=== PATIENT | female | born 1985 | race Two or more races ===

== ENCOUNTER 2024-09-02 18:34 | Emergency (ER) | payer MEDICAID, SELFPAY ==
[2024-09-02 18:36] VITALS: BMI 22.4
[2024-09-02 18:49] VITALS: BP 113/71; PULSE 84; RESP 16; TEMP 37.1; O2SAT 98
--- NOTE | 2024-09-02 18:53 | XR_ITS ---
Examination: OB Transvaginal ultrasound of the pelvis, complete Technique: Transvaginal sonographic images pelvis performed using rajput scale imaging Exam date and time: September 02, 2024 2048 hrs. Indications: Vaginal bleeding today Findings: Uterus 9.4 x 5.7 x 7.8 cm pole 0.4 cm corresponds to 6 weeks 0 days gestational age No heart tones Right ovary 3.2 x 2.5 cm arterial flow Left ovary obscured by bowel gas Impression: Intrauterine gestation corresponding to 6 week 0 day gestational age However, no cardiac activity, recommend continued short-term follow-up transvaginal pelvic sonography to exclude embryonic demise.
--- NOTE | 2024-09-02 18:53 | PD.EDRME ---
Rapid Medical Screening Exam [facility] Arrival date/time: 09/02/24 18:34 39F at approximately 4-8 weeks and with no significant PMH presents to ED with 1 day of vaginal bleeding, but no pain. Chief Complaint: Vaginal Bleeding Vital signs: Vital Signs Temperature 98.7 F 09/02/24 18:49 Pulse Rate 84 09/02/24 18:49 Respiratory Rate 16 09/02/24 18:49 Blood Pressure 113/71 09/02/24 18:49 Pulse Oximetry (%) 98 09/02/24 18:49 Oxygen Delivery Method Room Air 09/02/24 18:49
[2024-09-02 19:11] LABS: Basophils # (Auto) 0.1 Thou/mm3 (0.0-0.2); Basophils % (Auto) 1 % (0-2.5); Eosinophils # (Auto) 0.1 Thou/mm3 (0.0-0.5); Eosinophils % (Auto) 1 % (0-10); Hematocrit 40.3 % (36.0-46.0); Hemoglobin 13.5 g/dL (12.0-16.0); Immature Granulocytes % (Auto) 0 % (0-0); Immature Granulocytes Auto 0.01 Thou/mm3 (0.00-0.00); Lymphocytes # (Auto) 2.3 Thou/mm3 (1.0-4.8); Lymphocytes % (Auto) 23 % (10-50); Mean Corpuscular HGB Conc 33.5 g/dl (31.0-37.0); Mean Corpuscular Hemoglobin 29.6 pg (25.0-35.0); Mean Corpuscular Volume 88 fL (80-100); Monocytes # (Auto) 0.6 Thou/mm3 (0.0-0.8); Monocytes % (Auto) 6 % (0-12); Neutrophils # (Auto) 6.8 Thou/mm3 (1.8-7.7); Neutrophils % (Auto) 70 % (37-80); Nucleated Red Blood Cell % 0 /100 WBC (0); Platelet Count 233 Thou/mm3 (140-440); RDW Standard Deviation 40.6 fL (36.4-46.3); Red Blood Count 4.56 Miln/mm3 (4.00-5.20); White Blood Count 9.8 Thou/mm3 (3.6-11.0)
[2024-09-02 19:33] LABS: Alanine Aminotransferase 11 U/L (10-49); Albumin, Serum 4.8 gm/dL (3.5-5.0); Albumin/Globulin Ratio 1.7 (1.2-2.2); Alkaline Phosphatase 52 U/L (46-116); Anion Gap 7 (7-16); Aspartate Amino Transferase 17 U/L (0-34); BUN/Creatinine Ratio 8 Ratio (12-20); Bilirubin,Total 0.3 mg/dL (0.3-1.2); Blood Urea Nitrogen 5 mg/dL (9-23); Calcium 9.8 mg/dL (8.3-10.6); Calcium (Corrected) 9.8 mg/dL (8.5-10.1); Chloride 107 mMol/L (98-107); Creatinine (Component) 0.6 mg/dL (0.6-1.3); Estimated Creatinine Clearance 91.3 mL/min (>60); Globulin 2.9 gm/dL (2.3-3.5); Glucose 124 mg/dL (74-106); Osmolality,Calculated 272 (275-295); Potassium 3.5 mMol/L (3.4-5.1); Sodium 137 mMol/L (136-145); Total Protein 7.7 gm/dL (5.7-8.2); eGFR > 60 See Note
[2024-09-02 19:35] LABS: Collection Type, Urine Clean Catch
[2024-09-02 19:44] LABS: Bilirubin,Urine Negative (Negative); Blood,Urine 1+ (Negative); Clarity,Urine Clear (Clear/Hazy); Color,Urine Lt-Yellow (Lt Yel-Yel); Glucose, Urine Negative (Negative); Ketones,Urine Negative (Negative); Leukocyte Esterase,Urine Negative (Negative); Nitrite,Urine Negative (Negative); Protein,Urine Negative (Neg - Trace); RBC,Urine 3 /hpf (0-3); Specific Gravity,Urine 1.014 (1.001-1.035); Squamous Epithelial Cell,Urine 1 /hpf (0-5); Urobilinogen,Urine Negative mg/dL (0.0-1.0); WBC,Urine 1 /hpf (0-5)
[2024-09-02 20:03] LABS: Beta HCG,Quantitative 4498 mIU/mL (<5.0)
--- NOTE | 2024-09-02 21:38 | PD.EDVAGBL ---
ED OB Contraction Preg RMI/HPI General Chief complaint: Vaginal Bleeding Stated complaint: VAG BLEED, + PREG TEST, KATIE 04/05/25 Time Seen by Provider: 09/02/24 21:33 Arrival date/time: 09/02/24 18:34 RME / HPI RME / HPI Narrative: 39F at approximately 4-8 weeks and with no significant PMH presents to ED with 1 day of vaginal bleeding, severity mild. Described as spotting only. Patient denies any pelvic pain. Denies any other complaints. Patient tested herself positive for at home. Related Data Allergies Allergy/AdvReac Type Severity Reaction Status Date / Time No Known Allergies Allergy Verified 09/02/24 18:38 Review of Systems Review of Systems Narrative Review of Systems: Review of system reviewed and within normal limits except mentioned in HPI ED Exam Narrative Physical exam: VITAL SIGNS: Reviewed. GENERAL APPEARANCE: Alert and interactive, follows commands, no acute distress, HEAD AND FACE: Non-traumatic. ENT: PERRL, pink conjunctivitis, eyelid no trauma, Mucous membrane moist. NECK: Supple, nontender, no nuchal rigidity. CHEST: No tenderness, no crepitus, no paradoxical movement, no retractions. LUNGS: Clear, well ventilated, symmetric, no rales, no wheezing, no ronchi, no stridor, good breath sounds bilaterally. HEART: Regular rate, regular rhythm, no murmur, no gallops. ABDOMEN: Soft, positive bowel sounds, nondistended, no guarding, nontender, no rebound, no masses, RECTAL: Deferred. GENITAL: Deferred. NEUROLOGICAL: Gross motor function intact sensory function intact, Appropriate for age. MUSCULOSKELETAL: low back nontender, full range of motion. EXTREMITIES: Nontender, full range of motion. SKIN: Color pink, dry, no rash, no lacerations, no abrasions, no contusions. LYMPHATICS: Deferred. Course Quality Measures none Orders Category Date Time Status US OB transvaginal Stat Exams 09/02/24 18:53 Completed ABO/RH Type Stat Lab 09/02/24 19:00 Completed Beta HCG,Quantitative Stat Lab 09/02/24 19:00 Completed CBC Stat Lab 09/02/24 19:00 Completed CMP [Comprehensive Metabolic Panel] Stat Lab 09/02/24 19:00 Completed UA [Urinalysis] Stat Lab 09/02/24 19:28 Completed Urine Culture Stat Lab 09/02/24 19:28 Received Vital Signs Vital signs: Vital Signs Temperature 98.7 F 09/02/24 18:49 Pulse Rate 84 09/02/24 18:49 Respiratory Rate 16 09/02/24 18:49 Blood Pressure 113/71 09/02/24 18:49 Pulse Oximetry (%) 98 09/02/24 18:49 Oxygen Delivery Method Room Air 09/02/24 18:49 Vaginal Bleeding MDM Narrative MDM Narrative: 39F at approximately 4-8 weeks and with no significant PMH presents to ED with 1 day of vaginal bleeding, severity mild. Described as spotting only. Patient denies any pelvic pain. Denies any other complaints. Patient tested herself positive for at home. Patient's workup today all came back unremarkable however patient's hCG was only 4498. The rest of the labs unremarkable. No UTI. ABO type VIII plus. Transfer via ultrasound showed intrauterine gestation about 6 weeks, with no cardiac activity. Patient was advised to return to emergency room in 2 to 3 days for repeat hCG and repeat ultrasound. To rule out demise. Results discussed with the patient. Patient data External records reviewed:: None Clinical information provided by:: patient Social determinants that could affect healthcare access:: none Patient has the following chronic illnesses:: None How is presenting disease/condition affected by chronic disease/condition?: no chronic disease Evaluation data The following diagnostics were reviewed and interpreted by me:: lab results and radiology exam(s) Lab and/or radiology exams considered but not ordered:: None Interpretation Summary: Laboratory workup all came back unremarkable hCG was noted to be 4498 ultrasound of showed Intrauterine gestation corresponding to 6 week 0 day gestational age However, no cardiac activity, recommend continued short-term follow-up transvaginal pelvic sonography to exclude embryonic demise. Medications / Prescriptions Medications or Prescriptions considered but not ordered:: None Medication administrations:: None Consultations Consultation(s) initiated? (list below): No Diagnosis Vaginal Bleeding Differential Diagnosis: missed , threatened and vaginal bleeding Most likely diagnosis given after review of the tests above:: Threatened Admission Indicated Admission indicated?: not indicated Admission Request Was there a request for admission?: No Disposition Plan Disposition Plan: Discharge Discharge Attestation Discharge Attestation: The patient was given an opportunity to ask questions and understood the discharge instructions. Discharge instructions specifically effects, indications for sooner follow up or return to the emergency department, and the expected course of current diagnosis. Patient condition: Stable Discharge Plan Plan Patient Disposition: HOME (Self Care) Disposition Comment: stable Prescriptions/Referrals Referrals: No Primary/Family,Physician [Primary Care Provider] - In 1 week Problem List Clinical Impression: Vaginal bleeding, Currently Patient/Caregiver Discharge Instructions Discharge Activity: activity as tolerated Education Materials: First Trimester Additional Instructions: Thank you for the opportunity for serving you today. You are stable for discharged . You are advised to: Follow-up with your PCP in 1 to 2 days Return to ED for worsening of symptoms Increase oral fluids Pelvic rest, no sex for 1 week or until cleared by RN INFUSION, return to emergency room in 3 days for repeat hCG Print Language: Norwegian Stand Alone Forms: Neena Award Info., Patient Portal Info Letter PA/DELIVERY HELPER Supervising Physician LUCIA/TIM Supervising Physician: MD Vidal
[2024-09-02 21:45] VITALS: BP 116/72; PULSE 76; RESP 18; TEMP 36.8; O2SAT 99
== END 2024-09-02 21:46 | disposition home or self-care (01) ==
PROVIDERS: Physician Assistant; Emergency Provider Emergency Medicine
DX: O20.9 Hemorrhage in early pregnancy, unspecified (principal); Z3A.01 Less than 8 weeks gestation of pregnancy
CPT/HCPCS: 36415; 76817; 80053; 81001; 84702; 85025; 86900; 86901; 87086; 99284

== ENCOUNTER 2024-09-04 02:39 | Emergency (ER) | payer MEDICAID, SELFPAY ==
[2024-09-04 03:01] VITALS: BP 117/76; PULSE 105; RESP 16; TEMP 36.7; O2SAT 98
--- NOTE | 2024-09-04 03:02 | PD.EDRME ---
Rapid Medical Screening Exam [facility] Arrival date/time: 09/04/24 02:39 39 year old female present to ED for c/o of vaginal bleeding, currently 6 week I have greeted and performed a focused initial assessment of this patient. A comprehensive ED assessment and evaluation of the patient, analysis of all test results, and completion of the medical decision making process will be conducted by additional ED providers. Chief Complaint: Vaginal Bleeding Time Seen by Provider: 09/04/24 02:41
[2024-09-04 03:03] VITALS: BMI 20.8
--- NOTE | 2024-09-04 03:04 | XR_ITS ---
Examination: Complete OB ultrasound, less than 14 weeks, transabdominal Date and time of exam: September 04, 2024 0326 hrs. Indications: Heavy vaginal bleeding today, transvaginal ultrasound September 02, 2024 intrauterine gestation but no cardiac activity Technique: Obstetrical ultrasound images less than 14 weeks performed via transabdominal imaging Findings: Uterus 9.9 x 5.3 x 6.0 cm Intrauterine gestation, 1.6 cm gestational sac corresponding to 6 weeks 3 days gestational age No recognizable pole, no cardiac activity Masslike area in the cervix vaginal region 5.4 x 3.0 x 5.6 Is retained products Ovaries obscured by bowel gas Impression: Embryonic demise Recommend continued follow-up transvaginal pelvic sonography to differentiate retained products of conception from mass in the cervical region 5.4 x 3.0 x 5.6 cm
--- NOTE | 2024-09-04 03:04 | XR_ITS ---
Examination: Retroperitoneal ultrasound, complete Technique: Multiple high resolution grayscale images of the retroperitoneum obtained, including kidneys and bladder. Exam date and time:August 08, 2024 0337 hrs. Indications: Onset bilateral flank pain today Findings: Right kidney 9.8 x 4.9 x 6.2 cm cortex 1.9 cm Left kidney 10.4 x 4.4 x 4.8 cm cortex 2.2 cm No hydronephrosis or renal calculi Contracted urinary bladder 8.7 cc Impression: No hydronephrosis or renal calculi
[2024-09-04 03:42] LABS: Basophils # (Auto) 0.1 Thou/mm3 (0.0-0.2); Basophils % (Auto) 1 % (0-2.5); Eosinophils # (Auto) 0.2 Thou/mm3 (0.0-0.5); Eosinophils % (Auto) 2 % (0-10); Hematocrit 41.5 % (36.0-46.0); Hemoglobin 14.1 g/dL (12.0-16.0); Immature Granulocytes % (Auto) 0 % (0-0); Immature Granulocytes Auto 0.02 Thou/mm3 (0.00-0.00); Lymphocytes # (Auto) 2.7 Thou/mm3 (1.0-4.8); Lymphocytes % (Auto) 26 % (10-50); Mean Corpuscular Hemoglobin 30.1 pg (25.0-35.0); Mean Corpuscular Volume 89 fL (80-100); Monocytes # (Auto) 0.6 Thou/mm3 (0.0-0.8); Monocytes % (Auto) 5 % (0-12); Neutrophils # (Auto) 6.9 Thou/mm3 (1.8-7.7); Neutrophils % (Auto) 66 % (37-80); Nucleated Red Blood Cell % 0 /100 WBC (0); Platelet Count 243 Thou/mm3 (140-440); RDW Standard Deviation 40.4 fL (36.4-46.3); Red Blood Count 4.69 Miln/mm3 (4.00-5.20); White Blood Count 10.5 Thou/mm3 (3.6-11.0)
[2024-09-04 03:49] LABS: INR 1.1 (0.9-1.3); Prothrombin Time 11.9 Seconds (9.0-12.2)
[2024-09-04 03:58] LABS: Alanine Aminotransferase 11 U/L (10-49); Albumin, Serum 4.9 gm/dL (3.5-5.0); Albumin/Globulin Ratio 1.6 (1.2-2.2); Alkaline Phosphatase 56 U/L (46-116); Anion Gap 8 (7-16); Aspartate Amino Transferase 17 U/L (0-34); BUN/Creatinine Ratio 12 Ratio (12-20); Bilirubin,Total 0.6 mg/dL (0.3-1.2); Blood Urea Nitrogen 7 mg/dL (9-23); Calcium 9.9 mg/dL (8.3-10.6); Calcium (Corrected) 9.9 mg/dL (8.5-10.1); Carbon Dioxide 24.5 mMol/L (20.0-31.0); Chloride 104 mMol/L (98-107); Creatinine (Component) 0.6 mg/dL (0.6-1.3); Estimated Creatinine Clearance 95.9 mL/min (>60); Glucose 120 mg/dL (74-106); Lipase 43 U/L (12-53); Osmolality,Calculated 270 (275-295); Potassium 3.4 mMol/L (3.4-5.1); Sodium 136 mMol/L (136-145); Total Protein 7.9 gm/dL (5.7-8.2); eGFR > 60 See Note
[2024-09-04 04:23] LABS: Beta HCG,Quantitative 2717 mIU/mL (<5.0)
--- NOTE | 2024-09-04 04:37 | PRELIM_ITS ---
Renal/Retroperitoneal ultrasound. September 04, 2024 at 0337 hours Clinical history: Flank pain, rule out stones. The patient is . Technique: Duplex scan of the bilateral renal arterial and venou s tree was performed utilizing 2D grayscale imaging, Doppler spectral analysis and color flow. Findin gs:Right: The right kidney measures 9.8 x 4.9 x 6.2 cm with cortical thickness of 1.9 cm and is unrem arkable. There is no hydronephrosis or renal calculus. The corticomedullary differentiation is mainta ined.Left: The left kidney measures 10.2 x 4.4 x 4.8 cm with cortical thickness of 2.2 cm and is unre markable. There is no hydronephrosis or renal calculus. The corticomedullary differentiation is maint ained.The prevoid volume is 8.7 mL. The patient unable to void further. The ureteric jets are not vis ualized (after 1 minute). Impression:No renal calculus or hydronephrosis. Report Electronically Sign ed By: Debra Andrade 09/04/2024 4:36:36 AM [EST]
[2024-09-04 05:20] LABS: Collection Type, Urine Voided; WBC,Urine 0 /hpf (0-5)
[2024-09-04 05:21] VITALS: BP 113/70; PULSE 86; RESP 16; TEMP 36.8; O2SAT 98
--- NOTE | 2024-09-04 05:21 | PRELIM_ITS ---
Obstetric ultrasound (transabdominal). September 04, 2024 at 0326 hours Clinical history: Pelvic pain with vaginal bleeding.LMP 07/03/2024. HCG pending today, 4498 on 09/02/2024. Technique: Real-time obs tetric ultrasound was performed.Findings:There is an intrauterine gestational sac with a yolk sac. Th e mean sac diameter is 1.6 cm, corresponding to 6 weeks and 3 days. pole is not seen at this ti me.There is a 5.4 x 3 x 5.2 cm complex mass in the cervical/vaginal region (images 55-56/61).The uter us measures 9.9 x 5.3 x 6 cm. The ovaries are obscured by bowel gas. No evidence of adnexal mass.Ther e is no free fluid. Impression:Early intrauterine gestation with a visible yolk sac. pole and f etal cardiac activity are not seen at this time, which may be related to the early stage of gestation . Recommend follow up for viability.A 5.4 x 3 x 5.2 cm complex mass in the cervical/vaginal region. R eport Electronically Signed By: Debra Andrade 09/04/2024 5:20:45 AM [EST]
[2024-09-04 05:23] LABS: Bilirubin,Urine Negative (Negative); Blood,Urine 3+ (Negative); Clarity,Urine Turbid (Clear/Hazy); Glucose, Urine Negative (Negative); Ketones,Urine 4+ (Negative); Leukocyte Esterase,Urine Positive (Negative); Nitrite,Urine Negative (Negative); Protein,Urine 1+ (Neg - Trace); RBC,Urine 3281 /hpf (0-3); Squamous Epithelial Cell,Urine 1 /hpf (0-5); Urobilinogen,Urine Negative mg/dL (0.0-1.0)
[2024-09-04 05:24] LABS: Color,Urine Lt Orange (Lt Yel-Yel)
[2024-09-04 06:14] VITALS: O2SAT 99
[2024-09-04 06:15] VITALS: BP 101/60; PULSE 84; RESP 17; O2SAT 99
--- NOTE | 2024-09-04 06:20 | PD.EDVAGBL ---
ED OB Contraction Preg RMI/HPI General Chief complaint: Vaginal Bleeding Stated complaint: VAGINAL BLEEDING Time Seen by Provider: 09/04/24 02:41 Arrival date/time: 09/04/24 02:39 RME / HPI RME / HPI Narrative: 09/04/24 02:39 HPI Patient: 39-year-old female, 6 weeks 2. Chief Complaint: Recheck for vaginal bleeding. History: Reports no pain, fevers, chills, nausea, vomiting, diarrhea, or constipation. Denies further medical history1. Patient was here 2 days ago with a dropping hCG level. Minimal pain and bleeding, no passing of tissues1. Blood type: Positive. Ultrasound shows at the cervical os1. DDX Incomplete spontaneous : Given the dropping hCG levels, minimal pain, and bleeding, with ultrasound findings2. Threatened : Bleeding in early without passage of tissue2. Not Ectopic : Although less likely given the ultrasound findings, it should be ruled out due to the risk of rupture2. Not Cervical polyp or ectropion: These can cause bleeding, especially after a vaginal exam. MDM Confirm diagnosis: Repeat ultrasound to assess for retained products of conception. Management options: Expectant management: Allow for natural passage of tissue, with close follow-up. Medical management: Use of misoprostol to induce contractions and expel tissue. Surgical management: Dilation and curettage (D&C) if bleeding is heavy or patient prefers quicker resolution. Rh immunoglobulin: Administer Rhogam if the patient is Rh-negative to prevent isoimmunization. Supportive care: Provide emotional support and counseling, as patients may experience significant psychological impact. Related Data Allergies Allergy/AdvReac Type Severity Reaction Status Date / Time No Known Allergies Allergy Verified 09/02/24 18:38 Review of Systems Review of Systems Narrative Review of Systems: Gen: No fever, no chills, no weight loss EYES: No discharge, no visual changes, no pain HEENT: No ear pain, no congestion, no sore throat PULM: No shortness of breath, no cough, no congestion CV: No chest pain, no dyspnea on exertion, no palpitations GI: No nausea, no vomiting, no diarrhea, no pain, no constipation : +vaginal bleeding. No frequency, no urgency, no dysuria Musc/skel: No joint pain, no back pain Skin: No rash Psyc: No hallucinations, no depression Heme/Lymph: No easy bleeding or bruising tendencies Neuro: No weakness, no headache Past Medical History Past Medical History CARDIAC: Negative Congestive Heart Failure RESPIRATORY: Negative Chronic Obstructive Pulmonary Disease (COPD) GENITOURINARY: Negative Renal Disease ENDOCRINE: Negative Diabetes Mellitus Type 1 or Diabetes Mellitus Type 2 Social History SMOKING STATUS: Never smoker ED Exam Narrative Physical exam: GEN. APPEARANCE: The patient is alert awake oriented X-3 in minimal distress, lying down comfortably, does not look ill/toxic. Patient has good eye contact. Patient is cooperative. VITALS: All vitals were reviewed and the pulse ox is 99% on room air which is normal according to my interpretation. HEENT: Normocephalic, atraumatic. Pupils are equal and reactive. Oral mucosa is moist. Patent Nares NECK: Supple, nontender, no thyromegaly, no meningismus, no JVD, no step offs CHEST: Symmetrical, atraumatic, and with equal expansion , Nontender on palpation no deformity and no crepitus. CARDIOVASCULAR: Heart regular rhythm no murmur or gallop rub or extra beats. LUNGS: Clear to auscultation bilaterally with symmetrical chest rise. No laboring tachypnea or wheezing. No intercostal subcostal retraction. No rales and no rhonchi. ABDOMEN: Soft, flat, nontender to palpation, no guarding or rebound tenderness. There are no abnormal masses palpated. Active and normal bowel sounds. EXTREMITIES: Nontender. No edema. No cyanosis. Patient is able to move all 4 extremities well, with full ROM and good CSM. SKIN: Warm and dry, no jaundice or rashes noted. MUSCULOSKELETAL: No lubar or midline bony tenderness. There is no CVA tenderness. No paraspinal muscle spasm or tenderness. NEURO: Patient is BENÍTEZ x 4, Cranial nerves II through XII grossly intact. There is no focal neurologic deficits noted. GCS is 15, PNS and [employer] appear grossly intact. PSYCHIATRIC: Patient is in normal mood and affect, cooperative, no SI or HI or hallucinations. Pelvis exam differed at this time. Course Quality Measures none Orders Category Date Time Status US OB <= 14 weeks fetus Stat Exams 09/04/24 03:04 Completed US renal BI Stat Exams 09/04/24 03:04 Completed ABO/RH Type Stat Lab 09/04/24 07:30 Completed Beta HCG,Quantitative Stat Lab 09/04/24 03:20 Completed CBC Stat Lab 09/04/24 03:20 Completed CMP [Comprehensive Metabolic Panel] Stat Lab 09/04/24 03:20 Completed INR [Prothrombin Time with INR] Stat Lab 09/04/24 03:20 Completed Lipase Stat Lab 09/04/24 03:20 Completed UA [Urinalysis] Stat Lab 09/04/24 05:06 Completed Urine Culture Stat Lab 09/04/24 05:06 Received Vital Signs Vital signs: Vital Signs Temperature 98.1 F 09/04/24 03:01 Pulse Rate 105 H 09/04/24 03:01 Respiratory Rate 16 09/04/24 03:01 Blood Pressure 117/76 09/04/24 03:01 Pulse Oximetry (%) 98 09/04/24 03:01 Oxygen Delivery Method Room Air 09/04/24 03:01 Vaginal Bleeding Patient data External records reviewed:: [facility] previous records Clinical information provided by:: patient Social determinants that could affect healthcare access:: none Patient has the following chronic illnesses:: none How is presenting disease/condition affected by chronic disease/condition?: no chronic disease Evaluation data The following diagnostics were reviewed and interpreted by me:: lab results and radiology exam(s) Lab and/or radiology exams considered but not ordered:: none Interpretation Summary: Ordering Physician: Date of Service: Procedure(s): Accession Number(s): cc: ~ Obstetric ultrasound (transabdominal). September 04, 2024 at 0326 hours Clinical history: Pelvic pain with vaginal bleeding.LMP 07/03/2024. HCG pending today, 4498 on 09/02/2024. Technique: Real-time obstetric ultrasound was performed. Findings: There is an intrauterine gestational sac with a yolk sac. The mean sac diameter is 1.6 cm, corresponding to 6 weeks and 3 days. pole is not seen at this time. There is a 5.4 x 3 x 5.2 cm complex mass in the cervical/vaginal region (images 55-56/61). The uterus measures 9.9 x 5.3 x 6 cm. The ovaries are obscured by bowel gas. No evidence of adnexal mass. There is no free fluid. Impression: Early intrauterine gestation with a visible yolk sac. pole and cardiac activity are not seen at this time, which may be related to the early stage of gestation. Recommend follow up for viability. A 5.4 x 3 x 5.2 cm complex mass in the cervical/vaginal region. Report Electronically Signed By: Debra Andrade 09/04/2024 5:20:45 AM [EST] Ordering Physician: Date of Service: Procedure(s): Accession Number(s): cc: ~ Renal/Retroperitoneal ultrasound. September 04, 2024 at 0337 hours Clinical history: Flank pain, rule out stones. The patient is . Technique: Duplex scan of the bilateral renal arterial and venous tree was performed utilizing 2D grayscale imaging, Doppler spectral analysis and color flow. Findings: Right: The right kidney measures 9.8 x 4.9 x 6.2 cm with cortical thickness of 1.9 cm and is unremarkable. There is no hydronephrosis or renal calculus. The corticomedullary differentiation is maintained. Left: The left kidney measures 10.2 x 4.4 x 4.8 cm with cortical thickness of 2.2 cm and is unremarkable. There is no hydronephrosis or renal calculus. The corticomedullary differentiation is maintained. The prevoid volume is 8.7 mL. The patient unable to void further. The ureteric jets are not visualized (after 1 minute). Impression: No renal calculus or hydronephrosis. Report Electronically Signed By: Debra Andrade 09/04/2024 4:36:36 AM [EST] Dictated By: Signed By: Medications / Prescriptions Medications or Prescriptions considered but not ordered:: none Medication administrations:: none Consultations Consultation(s) initiated? (list below): No Diagnosis Vaginal Bleeding Differential Diagnosis: other (spontaneous , incomplete . medical screening) Most likely diagnosis given after review of the tests above:: spontaneous Admission Indicated Admission indicated?: not indicated Admission Request Was there a request for admission?: No Disposition Plan Disposition Plan: Discharge Discharge Attestation Discharge Attestation: The patient and all family members were given an opportunity to ask questions and understood the discharge instructions. Discharge instructions specifically effects, indications for sooner follow up or return to the emergency department, and the expected course of current diagnosis. Patient condition: Stable Discharge Plan Plan Patient Disposition: HOME (Self Care) Patient condition on transfer: Stable Prescriptions/Referrals Referrals: No Primary/Family,Physician [Primary Care Provider] - In 1 week Problem List Clinical Impression: Spontaneous Patient/Caregiver Discharge Instructions Education Materials: ED MISCARRIAGE Completed Print Language: Estonian Stand Alone Forms: Neena Award Info., Patient Portal Info Letter
--- NOTE | 2024-09-04 08:13 | PC.NURSE ---
pt ambulated to restroom independently with steady gait
[2024-09-04 08:16] VITALS: BP 92/70; PULSE 85; RESP 14; TEMP 36.8; O2SAT 98
[2024-09-04 10:00] VITALS: BP 103/58; PULSE 85; RESP 15; TEMP 36.6; O2SAT 97
== END 2024-09-04 10:53 | disposition home or self-care (01) ==
PROVIDERS: Physician Assistant; Emergency Provider Emergency Medicine
DX: O03.9 Complete or unspecified spontaneous abortion without complication (principal)
CPT/HCPCS: 36415; 76770; 76801; 80053; 81001; 83690; 84702; 85025; 85610; 86900; 86901; 87086; 99284

== ENCOUNTER 2025-06-13 11:33 | Outpatient (AMB) | payer MEDICAID, SELFPAY ==
--- NOTE | 2025-06-13 11:44 | AMB.OBINITIA ---
Vital Signs 06/13/25 11:58 Height 1.52 m Height Method Stated Weight 54.941 kg Weight Measurement Method Standing Scale BMI 23.8 BP 113/64 Blood Pressure Source Automatic Cuff Blood Pressure Location Left Upper Arm Position Sitting Respiration 16 Pulse 76 Pulse Source Monitor Temp 97.8 F Temp Source Oral Pulse Oximetry (%) 98 Oxygen Delivery Method Room Air Allergies/Home Meds Allergies & Medications Allergies No Known Allergies Allergy (Verified 06/13/25 11:59) Medication Reconciliation No Known Home Medications 06/13/25 [History Confirmed 06/13/25] Intake Visit Data Collection New Patient or Established: Established Patient (seen at [facility] within 3 years) Reason for Visit:: INITIAL CARE Seen by Clinical Staff ONLY (RN/MA): No Inventory Control Planner Required: Yes Inventory Control Planner's name/title: CHRISTINA CUNNINGHAM Do You Feel Safe at Home: Yes Authorities Contacted: N/A PCP or OBGYN visit in last 3 months: Yes Hx Now: Yes Are you currently on any form of Control: No Last menstrual period: 01/08/25 Pain Present Currently: No Pain Scale Used: Adrian-Douglas/Numerical Pain scale:: 0 Smoking Status Smoking Status: Never smoker Questionnaires Covid-19 Vaccine Questionnaire Has patient been vacinated for Covid-19 Have you been vacinated for Covid-19: Yes PHQ-9 PHQ-2 Over the last 2 weeks, how often have you been bothered by any of the following problems? 1. Little interest or pleasure in doing things: not at all 2. Feeling down, depressed, or hopeless: not at all Total score: 0 PHQ-9 3. Trouble falling or staying asleep, or sleeping too much: Not at all 4. Feeling tired or having little energy: Not at all 5. Poor appetite or overeating: Not at all 6. Feeling bad about yourself - or that you are a failure or have let yourself or your family down: Not at all 7. Trouble concentrating on things, such as reading the newspaper or watching television: Not at all 8. Moving or speaking so slowly that other people could have noticed? - Or the opposite - being so fidgety or restless that you have been moving around a lot more than usual: not at all 9. Thoughts that you would be better off or of hurting yourself in some way: Not at all Total score: 0 Source: Developed by Drs. Rubén Donohue, Reina Russo, Edson Bridges and colleagues, with an educational jareth from [employer]. Depression screen completed yes Social History Living Situation History Marital Status: Lives With: Family Housing: House Housing Other:: Has 4 children at home aged 23-11. Stays at home Tobacco History Smoking Status: Never smoker Second Hand Smoke Exposure: No Alcohol History Alcohol Intake: Former Alcohol Intake Frequency: holidays/special occasions only Domestic Abuse History Do You Feel Safe at Home: Yes History of Present Illness HPI Narrative The patient is a very sweet pleasant 40-year-old -0-1-4 exclusively Nigerien-speaking female who presents with her for an OB visit. She states she thought she was in menopause . She had a miscarriage in September 2024 and had some spotting in January. She has not had a period since. Her abdomen started growing and she took a test. The patient is actually feeling movement today. An ultrasound reveals approximately 23-1/2 weeks size fetus with cardiac activity. OB Ultrasound Indication Indication: Size and dates OB Ultrasound Ultrasound technique: transabdominal Gestational sac assessment: Presence, location, size, shape: Femur length 23-3/7 weeks BPD 23-5/7 weeks cardiac activity noted at 145 bpm EDC 10/05/2025. 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 No D&C History of vaginal delivery x 4 Other Relevant History: Patient denies chronic medical problems including asthma diabetes or hypertension. The patient denies any surgeries. OB Initial Visit Menstrual History Menstrual reliability: unknown Flow: normal Menstrual regularity: regular Monthly: Yes Age at menarche: 14 On control pills at conception: No Menstrual history comments: Patient thinks her last period was January 08, 2025 but she is unsure Associated symptoms (LMP): Reports fatigue and breast tenderness OB History : 6 Para: 4 Hx Total # of Abortions (Spontaneous & Elective): 1 # of Living Children: 4 Delivery History 1st : Child's name: SONAM date: 06/24/03 sex: male Gestational age at delivery (weeks): 41 Delivery type: vaginal Delivery complications: NONE History of depression before or after : No 2nd : Child's name: ELMA date: 02/03/05 sex: male Gestational age at delivery (weeks): 40 Delivery type: vaginal Delivery complications: NONE History of depression before or after : No 3rd : Child's name: OPHELIA date: 04/30/03 sex: male Gestational age at delivery (weeks): 39 Delivery type: vaginal Delivery complications: NONE History of depression before or after : No 4th : Child's name: MIRTA date: 08/07/14 sex: female Gestational age at delivery (weeks): 39 Delivery type: vaginal Delivery complications: NONE History of depression before or after : No Infection History & Risk Evaluation History of STDs: none Genetic Screening & History Genetic Screening/Teratology Counseling - Includes patient, baby's father, or anyone in either family with: 1. Patient's age 35 years or older as of estimated date of delivery: Yes 2. Thalassemia (Romanian, Palestinian, Mediterranean, or Background); MCV less than 80: No 3. Neural Tube Defect (Meningomyelocele, Spina Bifida, or Anencephaly): No 4. Congenital Heart Defect: No 5. Down Syndrome: No 6. Matthias-Sachs (Ashkenazi Alevism, Cajun, [place] Citizen [place]): No 7. Waylon Disease (Ashkenazi Alevism): No 8. Familial Dysautonomia (Ashkenazi Alevism): No 9. Sickle Cell Disease or Trait (): No 10. Hemophilia or other blood disorders: No 11. Muscular Dystrophy: No 12. Cystic Fibrosis: No 13. Carlyn's Chorea: No 14. Mental Retardation/Autism: No 15. Other inherited genetic or chromosomal disorder: No 16. Maternal Metabolic Disorder (EG,TYPE 1 Diabetes, PKU): No 17. Patient or baby's father had a child with defects not listed above: No 18. Recurrent loss or a stillbirth: No 19. Medications (including supplements, vitamins, herbs or otc drugs)/illicit/recreational drugs/alcohol since last menstrual period: No 20. Any other: No Infection History 1. Live with someone with TB or exposed to TB: No 2. Rash or viral illness since last menstrual period: No 3. Hepatitis B,C: No Other (see comments) Source: [employer] Review of Systems Constitutional Constitutional: Reports fatigue Endocrine Endocrine: Reports fatigue Exam Narrative Physical exam: Fundus 24 weeks General Limitations: no limitations and language barrier (Nigerien-speaking only) General Appearance: alert, in no apparent distress, comfortable, cooperative and healthy appearing Chest Chest inspection: Present normal inspection and symmetric chest wall rise Resp Respiratory exam: Present normal lung sounds bilaterally Card Cardiovascular exam: Present regular rate, normal rhythm and normal heart sounds Abdominal Abdominal exam: Present soft and normal bowel sounds Extremities Extremities exam: Present normal inspection and full ROM Psych Psychiatric exam: Present normal affect and normal mood Skin Skin exam: Present warm, dry, intact and normal color Office Procedures OB Clinic LOC & Office Proc's Nursing/Assessment Patient Status: Established Patient OB Clinic Nursing Assessment: Medication Reconciliation, Update PMH in EMR and Vital Signs OB Clinic Coordination of Care: AMA, Complex Care and Chronic Disease 1-5, Consent,records obtained, informed consent, Education Simp Pt/Fam, 1 Ins Authorization, Lab and Imaging orders, Results/Orders obtained and Staff clarify orders Special Needs: Heart tones Established Patient Charge Established Patient Point Assignment: 170 Established Patient Point Charge: EP Level 5 (160-above) Assessment & Plan Diagnosis / Problem List (1) Currently : Status: Inactive Qualifiers: Weeks of gestation: 23 weeks Qualified Code(s): Z3A.23 - 23 weeks gestation of Plan: Ordered all labs, official ultrasound and NIPT Okay with finding out gender. Today in ultrasound it appears a girl. Patient has 3 boys and a girl at home. The youngest is a girl and she is 11 years old (2) AMA (advanced maternal age) multigravida 35+: Status: Acute Qualifiers: Trimester: second trimester Qualified Code(s): O09.522 - Supervision of elderly multigravida, second trimester Plan: Ordered NIPT.
[2025-06-13 11:58] VITALS: BP 113/64; PULSE 76; RESP 16; TEMP 36.6; O2SAT 98; BMI 23.8
== END 2025-06-13 12:11 | disposition home or self-care (01) ==
LOC: HODSOBC 11:33
PROVIDERS: PCP Obstetrics & Gynecology; Referring Provider Obstetrics & Gynecology; Supervising Provider Obstetrics & Gynecology; Visit Provider Obstetrics & Gynecology
DX: O09.522 Supervision of elderly multigravida, second trimester (principal); O09.291 Supervision of pregnancy with other poor reproductive or obstetric history, first trimester; Z3A.23 23 weeks gestation of pregnancy
CPT/HCPCS: 99215; G0463

== ENCOUNTER 2025-06-29 10:38 | Outpatient (AMB) | payer MEDICAID, SELFPAY ==
[2025-06-29 10:56] VITALS: BP 105/64; PULSE 80; RESP 16; TEMP 36.6; O2SAT 99; BMI 23.8
--- NOTE | 2025-06-29 10:56 | OBCLNT_ITS ---
Vital Signs 06/29/25 10:56 Height 1.52 m Height Method Stated Weight 55.055 kg Weight Measurement Method Standing Scale BMI 23.8 BP 105/64 Blood Pressure Source Automatic Cuff Blood Pressure Location Left Upper Arm Position Sitting Respiration 16 Pulse 80 Pulse Source Monitor Temp 97.8 F Temp Source Oral Pulse Oximetry (%) 99 Oxygen Delivery Method Room Air Allergies/Home Meds Allergies & Medications Allergies No Known Allergies Allergy (Verified 06/29/25 10:57) Medication Reconciliation No Known Home Medications 06/13/25 [History Confirmed 06/29/25] Intake Visit Data Collection New Patient or Established: Established Patient (seen at [facility] within 3 years) Reason for Visit:: CARE Seen by Clinical Staff ONLY (RN/MA): No Adobe Developer Required: No Do You Feel Safe at Home: Yes Authorities Contacted: N/A PCP or OBGYN visit in last 3 months: Yes Hx Now: Yes Are you currently on any form of Control: No Pain Present Currently: No Pain Scale Used: Adrian-Douglas/Numerical Pain scale:: 0 Smoking Status Smoking Status: Never smoker Questionnaires Covid-19 Vaccine Questionnaire Has patient been vacinated for Covid-19 Have you been vacinated for Covid-19: Yes PHQ-9 PHQ-2 Over the last 2 weeks, how often have you been bothered by any of the following problems? 1. Little interest or pleasure in doing things: not at all 2. Feeling down, depressed, or hopeless: not at all Total score: 0 PHQ-9 3. Trouble falling or staying asleep, or sleeping too much: Not at all 4. Feeling tired or having little energy: Not at all 5. Poor appetite or overeating: Not at all 6. Feeling bad about yourself - or that you are a failure or have let yourself or your family down: Not at all 7. Trouble concentrating on things, such as reading the newspaper or watching television: Not at all 8. Moving or speaking so slowly that other people could have noticed? - Or the opposite - being so fidgety or restless that you have been moving around a lot more than usual: not at all 9. Thoughts that you would be better off or of hurting yourself in some way: Not at all Total score: 0 Source: Developed by Drs. Rubén Donohue, Reina Russo, Edson Bridges and colleagues, with an educational jareth from [employer]. Depression screen completed yes Social History Living Situation History Lives With: Family Housing: House Housing Other:: Has 4 children at home aged 23-11. 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 First visit at about 23 weeks. Has 3 boys at home and this 1 is a girl. Reviewed labs and ultrasound. Good movem ent no contractions no vaginal bleeding KATIE Calculator 2 Estimated Delivery Date Method Current WG Current Estimate 10/05/25 Ultrasound #1 26w 0d Other Estimates 10/15/25 LMP (Uncertain) 24w 4d Expected Delivery Route/Plan -0-1-4 history of vaginal delivery x 4 Kyrgyz-speaking only Specific Issue/Plans A positive/antibody negative/rubella immune/RPR nonreactive/hepatitis B surface antigen negative/HIV negative/hepatitis C negative/hemoglobin 12.2/hematocrit 37.9/hemoglobin A1c 4.7 NIPT 46XX/GC chlamydia negative urine culture negative/ 1 hour glucose normal at 135. Notes Visit Date: 06/29/25 Last Updated by: Heather Gill (OB Clinic)MD Has structural survey coming up. Normal NIPT. Office Procedures OBC Clinic LOC & Office Proc's Nursing/Assessment Patient Status: Established Patient OB Clinic Nursing Assessment: Medication Reconciliation, Update PMH in EMR and Vital Signs OB Clinic Coordination of Care: AMA, Complex Care and Chronic Disease 1-5, Consent,records obtained, informed consent, Education Simp Pt/Fam, 1 Ins Authorization, Lab and Imaging orders, Results/Orders obtained and Staff clarify orders Special Needs: Heart tones Established Patient Charge Established Patient Point Assignment: 170 Established Patient Point Charge: EP Level 5 (160-above) Assessment & Plan Diagnosis / Problem List (1) : Status: Acute Qualifiers: Weeks of gestation: 26 weeks Qualified Code(s): Z3A.26 - 26 weeks gestation of (2) AMA (advanced maternal age) multigravida 35+: Status: Acute Qualifiers: Trimester: second trimester Qualified Code(s): O09.522 - Supervision of elderly multigravida, second trimester Plan: Normal NIPT. Will refer to [facility] for level 2 ultrasound if screening ultrasound is abnormal.
== END 2025-06-29 11:24 | disposition home or self-care (01) ==
LOC: HODSOBC 10:38
PROVIDERS: Supervising Provider Obstetrics & Gynecology; Visit Provider Obstetrics & Gynecology
DX: O09.522 Supervision of elderly multigravida, second trimester (principal); Z3A.26 26 weeks gestation of pregnancy
CPT/HCPCS: 99215; G0463

== ENCOUNTER 2025-07-22 10:57 | Outpatient (AMB) | payer MEDICAID, SELFPAY ==
[2025-07-22 11:05] VITALS: BP 106/64; PULSE 75; RESP 16; TEMP 36.6; O2SAT 98; BMI 24.6
--- NOTE | 2025-07-22 11:05 | AMB.OBVISIT ---
Vital Signs 07/22/25 11:05 Height 1.52 m Height Method Stated Weight 56.926 kg Weight Measurement Method Standing Scale BMI 24.6 BP 106/64 Blood Pressure Source Automatic Cuff Blood Pressure Location Left Upper Arm Position Sitting Respiration 16 Pulse 75 Pulse Source Monitor Temp 97.8 F Temp Source Oral Pulse Oximetry (%) 98 Oxygen Delivery Method Room Air Allergies/Home Meds Allergies & Medications Allergies No Known Allergies Allergy (Verified 07/22/25 11:16) Medication Reconciliation No Known Home Medications 06/13/25 [History Confirmed 07/22/25] Intake Visit Data Collection New Patient or Established: Established Patient (seen at [facility] within 3 years) Reason for Visit:: CARE Seen by Clinical Staff ONLY (RN/MA): No Motor And Generator Assembler Required: Yes Motor And Generator Assembler's name/title: CHRISTINA CUNNINGHAM Do You Feel Safe at Home: Yes Authorities Contacted: N/A PCP or OBGYN visit in last 3 months: Yes Hx Now: Yes Are you currently on any form of Control: No Pain Present Currently: No Pain Scale Used: Adrian-Douglas/Numerical Pain scale:: 0 Smoking Status Smoking Status: Never smoker Questionnaires Covid-19 Vaccine Questionnaire Has patient been vacinated for Covid-19 Have you been vacinated for Covid-19: Yes PHQ-9 PHQ-2 Over the last 2 weeks, how often have you been bothered by any of the following problems? 1. Little interest or pleasure in doing things: not at all 2. Feeling down, depressed, or hopeless: not at all Total score: 0 PHQ-9 3. Trouble falling or staying asleep, or sleeping too much: Not at all 4. Feeling tired or having little energy: Not at all 5. Poor appetite or overeating: Not at all 6. Feeling bad about yourself - or that you are a failure or have let yourself or your family down: Not at all 7. Trouble concentrating on things, such as reading the newspaper or watching television: Not at all 8. Moving or speaking so slowly that other people could have noticed? - Or the opposite - being so fidgety or restless that you have been moving around a lot more than usual: not at all 9. Thoughts that you would be better off or of hurting yourself in some way: Not at all Total score: 0 Source: Developed by Drs. Rubén Donohue, Reina Russo, Edson Bridges and colleagues, with an educational jareth from [facility]. Depression screen completed yes Social History Living Situation History Lives With: Family Housing: House Housing Other:: Has 4 children at home aged 23-11. 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 First visit at about 23 weeks. Has 3 boys at home and this 1 is a girl. Reviewed labs and ultrasound. Good movement no contractions no vaginal bleeding 07/22/25 <del>?</del> 29w 2d 56.926 kg 106/64 absent unknown 30 134 active Good movement no contractions no loss of fluids Has a level 2 ultrasound coming up. We had to authorize for this so it is going to be performed approximately 32 weeks. KATIE Calculator Estimated Delivery Date Method Current WG Current Estimate 10/05/25 Ultrasound #1 29w 3d Other Estimates 10/15/25 LMP (Uncertain) 28w 0d Expected Delivery Route/Plan -0-1-4 history of vaginal delivery x 4 Kazakh-speaking only Specific Issue/Plans A positive/antibody negative/rubella immune/RPR nonreactive/hepatitis B surface antigen negative/HIV negative/hepatitis C negative/hemoglobin 12.2/hematocrit 37.9/hemoglobin A1c 4.7 NIPT 46XX/GC chlamydia negative urine culture negative/ 1 hour glucose normal at 135. AMA: Normal NIPT. Level 2 ultrasound pending. Will need NST BPP scheduled at 36 weeks. Notes Visit Date: 07/22/25 Last Updated by: Heather Gill (OB Clinic)MD 1 hour glucose 135. Will schedule NST BPP starting at 36 weeks secondary to AMA. Visit Date: 06/29/25 Last Updated by: Heather Gill (OB Clinic)MD Has structural survey coming up. Normal NIPT. Office Procedures OBC Clinic LOC & Office Proc's Nursing/Assessment Patient Status: Established Patient OB Clinic Nursing Assessment: Medication Reconciliation, Update PMH in EMR and Vital Signs OB Clinic Coordination of Care: AMA, Complex Care and Chronic Disease 1-5, Consent,records obtained, informed consent, Education Simp Pt/Fam, 1 Ins Authorization, Lab and Imaging orders, Results/Orders obtained and Staff clarify orders Special Needs: Heart tones Established Patient Charge Established Patient Point Assignment: 170 Established Patient Point Charge: EP Level 5 (160-above) Assessment & Plan Diagnosis / Problem List (1) AMA (advanced maternal age) multigravida 35+: Status: Acute Qualifiers: Trimester: third trimester Qualified Code(s): O09.523 - Supervision of elderly multigravida, third trimester (2) : Status: Acute Qualifiers: Weeks of gestation: 26 weeks Qualified Code(s): Z3A.26 - 26 weeks gestation of Additional Plan Follow Up: 2 Weeks
== END 2025-07-22 12:12 | disposition home or self-care (01) ==
LOC: HODSOBC 10:57
PROVIDERS: Supervising Provider Obstetrics & Gynecology; Visit Provider Obstetrics & Gynecology
DX: O09.523 Supervision of elderly multigravida, third trimester (principal); Z3A.29 29 weeks gestation of pregnancy; Z75.8 Other problems related to medical facilities and other health care
CPT/HCPCS: 99215; G0463

== ENCOUNTER → 2025-07-27 | Outpatient (CLI) | payer MEDICAID, SELFPAY ==
--- NOTE | 2025-07-27 14:00 | XR_ITS ---
Examination: Complete OB ultrasound greater than 14 weeks Date and time of exam: July 27, 2025, 1455 hours INDICATIONS: Supervision otherwise normal Findings: Viable intrauterine single fetus with single amniotic sac presentation breech spine maternal left Placenta posterior 3.2 cm from the cervix grade 1, findings most consistent with large venous rodríguez 8.9 x 4.7 cm Umbilical cord insertion seen Amniotic fluid index 11.4 cm Cervix 5.9 cm Right ovary 3.2 cm arterial flow Left ovary obscured by bowel gas. Composite estimated gestational age based on BPD, head circumference, abdominal circumference, femur length is 27 weeks 6 days Estimated weight 1079 g. Survey of intracranial anatomy, spinal anatomy, abdominal anatomy, four-chamber heart performed with no abnormalities identified. Impression: Viable intrauterine gestation in breech presentation Recommend 1 week follow-up pelvic sonography to document stability of probable placental venous rodríguez.
== END | disposition home or self-care (01) ==
PROVIDERS: PCP Nurse Practitioner Family; Referring Provider Nurse Practitioner Family; Visit Provider Nurse Practitioner Family
DX: O32.1XX0 Maternal care for breech presentation, not applicable or unspecified (principal); Z3A.27 27 weeks gestation of pregnancy
CPT/HCPCS: 76805

== ENCOUNTER 2025-08-25 08:56 | Outpatient (AMB) | payer MEDICAID, SELFPAY ==
--- NOTE | 2025-08-25 09:16 | AMB.OBPNC ---
Vital Signs 08/25/25 09:18 Height 1.52 m Height Method Stated Weight 59.534 kg Weight Measurement Method Standing Scale BMI 25.7 BP 111/73 Blood Pressure Source Automatic Cuff Blood Pressure Location Right Upper Arm Position Sitting Respiration 18 Pulse 89 Pulse Source Monitor Temp 97.9 F Temp Source Temporal Artery Scan Pulse Oximetry (%) 98 Oxygen Delivery Method Room Air Allergies/Home Meds Allergies & Medications Allergies No Known Allergies Allergy (Verified 08/25/25 09:21) Medication Reconciliation No Known Home Medications 06/13/25 [History Confirmed 08/25/25] Immunizations Immunizations Flu Vaccine in the Last 12 Months: Yes Date of most recent flu vaccination: 08/18/25 Flu Vaccine Exclusion Criteria: Already Received Care OB Visit Log OB Flowsheet Initial Weight: Not Recorded Date <del>?</del> EGA Weight BP Alb Glu CTX Pres Fundal ht FHR Mov Dilation Station Effacement Hx Notes Visit Note 06/29/25 <del>?</del> 26w 0d 55.055 kg 105/64 absent 27 145 active Return OB. First visit at about 23 weeks. Has 3 boys at home and this 1 is a girl. Reviewed labs and ultrasound. Good movement no contractions no vaginal bleeding 07/22/25 <del>?</del> 29w 2d 56.926 kg 106/64 absent unknown 30 134 active Good movement no contractions no loss of fluids Has a level 2 ultrasound coming up. We had to authorize for this so it is going to be performed approximately 32 weeks. 08/11/25 <del>?</del> 32w 1d 58.06 kg 98/59 absent cephalic 32 30 145 active 08/25/25 <del>?</del> 34w 1d 59.534 kg 111/73 absent cephalic 35 147 active good movements KATIE Calculator Estimated Delivery Date Method Current WG Current Estimate 10/05/25 Ultrasound #1 34w 2d Other Estimates 10/15/25 LMP (Uncertain) 32w 6d Expected Delivery Route/Plan -0-1-4 history of vaginal delivery x 4 Salvadorean-speaking only Specific Issue/Plans A positive/antibody negative/rubella immune/RPR nonreactive/hepatitis B surface antigen negative/HIV negative/hepatitis C negative/hemoglobin 12.2/hematocrit 37.9/hemoglobin A1c 4.7 NIPT 46XX/GC chlamydia negative urine culture negative/ 1 hour glucose normal at 135. AMA: Normal NIPT. Level 2 ultrasound pending. Will need NST BPP scheduled at 36 weeks. Notes Visit Date: 08/25/25 Last Updated by: Maggie Lugo MD Has Us today for follow up on placental venous rodríguez at [facility] and for growth / clinically there is growth / plan follow up in 2 weeks and will refer for NST now biweekly for AMA order Hb A1c and RBS next visit Visit Date: 08/11/25 Last Updated by: Maggie Lugo MD AMA at 32.1 weeks /NST start at 36 weeks and follow up in 2 weeks Us done 07/27/2025 show lag in growth and baby is measuring 27.6 weeks on 07/27/2025 and there is a venous rodríguez in the posterior placenta / advised kick counts / start NST/BPP at 33 weeks / labor precautions given Visit Date: 07/22/25 Last Updated by: Heather Gill (OB Clinic)MD 1 hour glucose 135. Will schedule NST BPP starting at 36 weeks secondary to AMA. Visit Date: 06/29/25 Last Updated by: Heather Gill (OB Clinic)MD Has structural survey coming up. Normal NIPT. Office Procedures OBC Clinic LOC & Office Proc's Nursing/Assessment Patient Status: Established Patient OB Clinic Nursing Assessment: Medication Reconciliation, Update PMH in EMR and Vital Signs OB Clinic Coordination of Care: Complex Care and Chronic Disease 1-5, Education Complex Pt/Fam, Consent,records obtained, informed consent, Lab and Imaging orders, Results/Orders obtained and Staff clarify orders Special Needs: Heart tones Established Patient Charge Established Patient Point Assignment: 140 Established Patient Point Charge: EP Level 4 (120-155) Assessment & Plan Diagnosis / Problem List (1) AMA (advanced maternal age) multigravida 35+: Status: Acute Qualifiers: Trimester: third trimester Qualified Code(s): O09.523 - Supervision of elderly multigravida, third trimester Plan: start NST biweekly (2) SGA (small for gestational age), , affecting care of mother, antepartum: Status: Acute Qualifiers: Fetus number: single or unspecified fetus Qualified Code(s): O36.5990 - Maternal care for other known or suspected poor growth, unspecified trimester, not applicable or unspecified Plan: US today for growth , though clinically growth is seen (3) Placental abnormality in third trimester: Status: Acute Plan: has follow up on venous placental rodríguez seen on US and US today at [facility] Additional Assessment Has Us today for follow up on placental venous rodríguez at [facility] and for growth / clinically there is growth / plan follow up in 2 weeks and will refer for NST now biweekly for AMA order Hb A1c and RBS next visit
[2025-08-25 09:18] VITALS: BP 111/73; PULSE 89; RESP 18; TEMP 36.6; O2SAT 98; BMI 25.7
== END 2025-08-25 10:24 | disposition home or self-care (01) ==
LOC: HODSOBC 08:56
PROVIDERS: Supervising Provider Obstetrics & Gynecology; Visit Provider Obstetrics & Gynecology
DX: O09.523 Supervision of elderly multigravida, third trimester (principal); O09.893 Supervision of other high risk pregnancies, third trimester; O36.5930 Maternal care for other known or suspected poor fetal growth, third trimester, not applicable or unspecified; O43.93 Unspecified placental disorder, third trimester; Z3A.34 34 weeks gestation of pregnancy; Z60.3 Acculturation difficulty
CPT/HCPCS: 99214; G0463

== ENCOUNTER → 2025-08-25 | Outpatient (CLI) | payer MEDICAID, SELFPAY ==
--- NOTE | 2025-08-25 10:30 | XR_ITS ---
Examination: Complete OB ultrasound greater than 14 weeks Date and time of exam: August 25, 2025, 1056 hours INDICATIONS: Probable venous rodríguez 8.9 cm x 4.7 cm on ultrasound July 27, 2025 Findings: Viable intrauterine single fetus with single amniotic sac presentation breech Placenta posterior low-lying 1.6 cm from the cervix grade 3, no venous rodríguez Umbilical cord insertion 3 vessel seen Amniotic fluid index 14.3 cm Cervix 6.5 cm Right ovary 3.5 cm arterial flow Left ovary obscured by bowel gas. Composite estimated gestational age based on BPD, head circumference, abdominal circumference, femur length is 33 weeks 3 days Estimated weight 2193.7 g. Survey of intracranial anatomy, spinal anatomy, abdominal anatomy, four-chamber heart performed with no abnormalities identified. Impression: Viable intrauterine gestation in breech presentation Placenta posterior low-lying 1.6 cm from the cervix.
== END | disposition home or self-care (01) ==
PROVIDERS: PCP Obstetrics & Gynecology; Referring Provider Obstetrics & Gynecology; Visit Provider Obstetrics & Gynecology
DX: O26.899 Other specified pregnancy related conditions, unspecified trimester (principal); O43.103 Malformation of placenta, unspecified, third trimester; O36.5990 Maternal care for other known or suspected poor fetal growth, unspecified trimester, not applicable or unspecified; O09.523 Supervision of elderly multigravida, third trimester; Z3A.33 33 weeks gestation of pregnancy
CPT/HCPCS: 76805

== ENCOUNTER → 2025-08-31 | Outpatient (CLI) | payer MEDICAID, SELFPAY ==
--- NOTE | 2025-08-31 12:38 | XR_ITS ---
Examination: Complete OB ultrasound greater than 14 weeks Date and time of exam: August 31, 2025, 1245 hours INDICATIONS: Abdominal pain this week Findings: Viable intrauterine single fetus with single amniotic sac presentation cephalic Cardiac motion 138 bpm Placenta posterior grade 3 Umbilical cord insertion seen Amniotic fluid index 11.4 cm Cervix 4.4 cm Ovaries obscured by bowel gas. Composite estimated gestational age based on BPD, head circumference, abdominal circumference, femur length is 34 weeks 1 day Estimated weight 2386.8 g. Survey of intracranial anatomy, spinal anatomy, abdominal anatomy, four-chamber heart performed with no abnormalities identified. Impression: Viable intrauterine gestation in cephalic presentation.
== END | disposition home or self-care (01) ==
PROVIDERS: PCP Family Medicine; Referring Provider Obstetrics & Gynecology; Visit Provider Obstetrics & Gynecology
DX: O26.899 Other specified pregnancy related conditions, unspecified trimester (principal); O43.103 Malformation of placenta, unspecified, third trimester; Z3A.34 34 weeks gestation of pregnancy
CPT/HCPCS: 76805

== ENCOUNTER 2025-09-12 10:30 | Outpatient (AMB) | payer MEDICAID, SELFPAY ==
--- NOTE | 2025-09-12 10:32 | OBCLNT_ITS ---
Vital Signs 09/12/25 10:38 Height 1.52 m Height Method Stated Weight 60.866 kg Weight Measurement Method Standing Scale BMI 26.3 BP 106/68 Blood Pressure Source Automatic Cuff Blood Pressure Location Left Upper Arm Position Sitting Respiration 18 Pulse 98 Pulse Source Monitor Temp 98.2 F Temp Source Oral Pulse Oximetry (%) 98 Oxygen Delivery Method Room Air Allergies/Home Meds Allergies & Medications Allergies No Known Allergies Allergy (Verified 09/12/25 10:41) Medication Reconciliation No Known Home Medications 06/13/25 [History Confirmed 09/12/25] Immunizations Immunizations Flu Vaccine in the Last 12 Months: No Flu Vaccine Exclusion Criteria: Refused by Patient and No Exclusion Criteria Care OB Visit Log OB Flowsheet Initial Weight: Not Recorded Date -?-?-?-?-?-?-?-?-?-?-?-?- EGA Weight BP Alb Glu CTX Pres Fundal ht FHR Mov Dilation Station Effacement Hx Notes Visit Note 06/29/25 -?-?-?-?-?-?-?-?-?-?-?-?- 26w 0d 55.055 kg 105/64 absent 27 145 ac tive Return OB. First visit at about 23 weeks. Has 3 boys at home and this 1 is a girl. Reviewed labs and ultrasound. Good movem ent no contractions no vaginal bleeding 07/22/25 -?-?-?-?-?-?-?-?-?-?-?-?- 29w 2d 56.926 kg 106/64 absent unknown 30 134 active Good movement no contractions no loss of fluids H as a level 2 ultrasound coming up. We had to authorize for this so it is going to be performed approximately 32 weeks. 08/11/25 -?-?-?-?-?-?-?-?-?-?-?-?- 32w 1d 58.06 kg 98/59 absent cephalic 32 30 145 active 08/25/25 -?-?-?-?-?-?-?-?-?-?-?-?- 34w 1d 59.534 kg 111/73 absent cephalic 35 147 active good movements 09/12/25 -?-?-?-?-?-?-?-?-?-?-?-?- 36w 5d 60.866 kg 106/68 absent cephalic 36 144 active KATIE Calculator Estimated Delivery Date Method Current WG Current Estimate 10/05/25 Ultrasound #1 36w 5d Other Estimates 10/15/25 LMP (Uncertain) 35w 2d 10/11/25 Ultrasound #2 35w 6d Expected Delivery Route/Plan -0-1-4 history of vaginal delivery x 4 Moroccan-speaking only Specific Issue/Plans A positive/antibody negative/rubella immune/RPR nonreactive/hepatitis B surface antigen negative/HIV negative/hepatitis C negative/hemoglobin 12.2/hematocrit 37.9/hemoglobin A1c 4.7 NIPT 46XX/GC chlamydia negative urine culture negative/ 1 hour glucose normal at 135. AMA: Normal NIPT. Level 2 ultrasound pending. Will need NST BPP scheduled at 36 weeks. Notes Visit Date: 09/12/25 Last Updated by: Maggie Lugo MD h/o placental venous rodríguez / clinically growth and is on Biweekly NST 36.5 weeks today / BPP is 05/13 today / appropriate growth based on Last US of 08/31/2025 / GBS today done/ not sure about sterilization, thinking of BCpills / follow up in 1 week/ labor precuations Visit Date: 08/25/25 Last Updated by: Maggie Lugo MD Has Us today for follow up on placental venous rodríguez at [facility] and for growth / clinically there is growth / plan follow up in 2 weeks and will refer for NST now biweekly for AMA order Hb A1c and RBS next visit Visit Date: 08/11/25 Last Updated by: Maggie Lugo MD AMA at 32.1 weeks /NST start at 36 weeks and follow up in 2 weeks Us done 07/27/2025 show lag in growth and baby is measuring 27.6 weeks on 07/27/2025 and there is a venous rodríguez in the posterior placenta / advised kick counts / start NST/BPP at 33 weeks / labor precautions given Visit Date: 07/22/25 Last Updated by: Heather Gill (OB Clinic)MD 1 hour glucose 135. Will schedule NST BPP starting at 36 weeks secondary to AMA. Visit Date: 06/29/25 Last Updated by: Heather Gill (OB Clinic)MD Has structural survey coming up. Normal NIPT. Office Procedures OBC Clinic LOC & Office Proc's Nursing/Assessment Patient Status: Established Patient OB Clinic Nursing Assessment: Medication Reconciliation, Update PMH in EMR and Vital Signs OB Clinic Coordination of Care: Consent,records obtained, informed consent, Education Simp Pt/Fam, Lab and Imaging orders, Results/Orders obtained and Staff clarify orders Special Needs: Heart tones Established Patient Charge Established Patient Point Assignment: 110 Established Patient Point Charge: EP Level 3 (80-115) Assessment & Plan Diagnosis / Problem List (1) Placental abnormality in third trimester: Status: Acute (2) : Status: Acute Qualifiers: Weeks of gestation: 26 weeks Qualified Code(s): Z3A.26 - 26 weeks gestation of (3) AMA (advanced maternal age) multigravida 35+: Status: Acute Qualifiers: Trimester: third trimester Qualified Code(s): O09.523 - Supervision of elderly multigravida, third trimester Plan weekly follow up / biweekly NST / follow up in 1 week / labor precautions/ GBS today Additional Plan Follow Up: 1 Week
[2025-09-12 10:38] VITALS: BP 106/68; PULSE 98; RESP 18; TEMP 36.8; O2SAT 98; BMI 26.3
== END 2025-09-12 11:36 | disposition home or self-care (01) ==
PROVIDERS: Supervising Provider Obstetrics & Gynecology; Visit Provider Obstetrics & Gynecology
DX: O09.523 Supervision of elderly multigravida, third trimester (principal); O09.893 Supervision of other high risk pregnancies, third trimester; O43.93 Unspecified placental disorder, third trimester; Z3A.36 36 weeks gestation of pregnancy; Z28.21 Immunization not carried out because of patient refusal; Z36.85 Encounter for antenatal screening for Streptococcus B
CPT/HCPCS: 99213; G0463

== ENCOUNTER 2025-09-23 10:32 | Outpatient (AMB) | payer MEDICAID, SELFPAY ==
[2025-09-23 10:47] VITALS: BP 118/70; PULSE 84; RESP 16; TEMP 36.6; O2SAT 98; BMI 26.7
--- NOTE | 2025-09-23 10:47 | OBCLNT_ITS ---
Vital Signs 09/23/25 10:47 Height 1.52 m Height Method Stated Weight 61.745 kg Weight Measurement Method Standing Scale BMI 26.7 BP 118/70 Blood Pressure Source Automatic Cuff Blood Pressure Location Left Upper Arm Position Sitting Respiration 16 Pulse 84 Pulse Source Monitor Temp 97.8 F Temp Source Oral Pulse Oximetry (%) 98 Oxygen Delivery Method Room Air Allergies/Home Meds Allergies & Medications Allergies No Known Allergies Allergy (Verified 09/23/25 10:48) Medication Reconciliation vitamins-iron fumarate 66 mg iron-folic acid 1 mg tablet tab PO 09/23/25 [History Confirmed 09/23/25] Immunizations Immunizations Flu Vaccine in the Last 12 Months: Yes Flu Vaccine Exclusion Criteria: Already Received Care OB Visit Log OB Flowsheet Initial Weight: Not Recorded Date -?-?-?-?-?-?-?-?-?-?-?-?- EGA Weight BP Alb Glu CTX Pres Fundal ht FHR Mov Dilation Station Effacement Hx Notes Visit Note 06/29/25 -?-?-?-?-?-?-?-?-?-?-?-?- 26w 0d 55.055 kg 105/64 absent 27 145 ac tive Return OB. First visit at about 23 weeks. Has 3 boys at home and this 1 is a girl. Reviewed labs and ultrasound. Good movem ent no contractions no vaginal bleeding 07/22/25 -?-?-?-?-?-?-?-?-?-?-?-?- 29w 2d 56.926 kg 106/64 absent unknown 30 134 active Good movement no contractions no loss of fluids H as a level 2 ultrasound coming up. We had to authorize for this so it is going to be performed approximately 32 weeks. 08/11/25 -?-?-?-?-?-?-?-?-?-?-?-?- 32w 1d 58.06 kg 98/59 absent cephalic 32 30 145 active 08/25/25 -?-?-?-?-?-?-?-?--?-?-?-?- 34w 1d 59.534 kg 111/73 absent cephalic 35 147 active good movements 09/12/25 -?-?-?-?-?-?-?-?-?-?-?-?- 36w 5d 60.866 kg 106/68 absent cephalic 36 144 active 09/23/25 -?-?-?-?-?-?-?-?-?-?-?-?- 38w 2d 61.745 kg 118/70 absent cephalic 38 140 active KATIE Calculator Estimated Delivery Date Method Current WG Current Estimate 10/05/25 Ultrasound #1 38w 2d Other Estimates 10/15/25 LMP (Uncertain) 36w 6d 10/11/25 Ultrasound #2 37w 3d Expected Delivery Route/Plan -0-1-4 history of vaginal delivery x 4 [place]wandan-speaking only Specific Issue/Plans A positive/antibody negative/rubella immune/RPR nonreactive/hepatitis B surface antigen negative/HIV negative/hepatitis C negative/hemoglobin 12.2/hematocrit 37.9/hemoglobin A1c 4.7 NIPT 46XX/GC chlamydia negative urine culture negative/ 1 hour glucose normal at 135. AMA: Normal NIPT. Level 2 ultrasound pending. Will need NST BPP scheduled at 36 weeks. Notes Visit Date: 09/23/25 Last Updated by: Maggie Lugo MD Visit Date: 09/12/25 Last Updated by: Maggie Lugo MD h/o placental venous rodríguez / clinically growth and is on Biweekly NST 36.5 weeks today / BPP is 8/8 today / appropriate growth based on Last US of 08/31/2025 / GBS today done/ not sure about sterilization, thinking of BCpills / follow up in 1 week/ labor precuations Visit Date: 08/25/25 Last Updated by: Maggie Lugo MD Has Us today for follow up on placental venous rodríguez at [facility] and for growth / clinically there is growth / plan follow up in 2 weeks and will refer for NST now biweekly for AMA order Hb A1c and RBS next visit Visit Date: 08/11/25 Last Updated by: Maggie Lugo MD AMA at 32.1 weeks /NST start at 36 weeks and follow up in 2 weeks Us done 07/27/2025 show lag in growth and baby is measuring 27.6 weeks on 07/27/2025 and there is a venous rodríguez in the posterior placenta / advised kick counts / start NST/BPP at 33 weeks / labor precautions given Visit Date: 07/22/25 Last Updated by: Heather Gill (OB Clinic)MD 1 hour glucose 135. Will schedule NST BPP starting at 36 weeks secondary to AMA. Visit Date: 06/29/25 Last Updated by: Heather Gill (OB Clinic)MD Has structural survey coming up. Normal NIPT. Office Procedures OBC Clinic LOC & Office Proc's Nursing/Assessment Patient Status: Established Patient OB Clinic Nursing Assessment: Medication Reconciliation, Update PMH in EMR and Vital Signs OB Clinic Coordination of Care: AMA, Complex Care and Chronic Disease 1-5, Consent,records obtained, informed consent, Education Simp Pt/Fam, 1 Ins Authorization, Lab and Imaging orders, Results/Orders obtained and Staff clarify orders Special Needs: Heart tones Established Patient Charge Established Patient Point Assignment: 170 Established Patient Point Charge: EP Level 5 (160-above) Assessment & Plan Additional Plan AMA/ in amultigravida patient goes for NST biweekly/ she does not want a pelvic exam / EDC is 10/05/2025 / labor precautions and kick count / follow up next available and continue NST biweekly / GBS is negative
== END 2025-09-23 11:32 | disposition home or self-care (01) ==
LOC: HODSOBC 10:32
PROVIDERS: Supervising Provider Obstetrics & Gynecology; Visit Provider Obstetrics & Gynecology
DX: O09.523 Supervision of elderly multigravida, third trimester (principal); Z3A.38 38 weeks gestation of pregnancy
CPT/HCPCS: 99215; G0463

== ENCOUNTER 2025-10-03 08:11 | Outpatient (RCR) | payer MEDICAID, SELFPAY ==
--- NOTE | 2025-09-05 08:35 | XR_ITS ---
Examination: Biophysical profile, ultrasound Date and time of exam: September 05, 2025, 0904 hours INDICATIONS: Diagnosis advanced maternal age Technique: Multiple transabdominal sonographic images of the pelvis abdomen obtained. Attention is directed to the breathing movement, gross body movement, amniotic fluid volume and tone. Findings: Amniotic fluid index 7.9 cm Total biophysical profile is 8 of 8. breathing movement is 2. Gross body movement is 2. tone is 2. Qualitative amniotic fluid volume is 2 Impression: Biophysical profile is 8 of 8.
[2025-09-05 09:20] VITALS: BP 112/68; PULSE 95; RESP 16; TEMP 36.5
--- NOTE | 2025-09-08 08:27 | XR_ITS ---
Examination: Biophysical profile, ultrasound Date and time of exam: September 08, 2025, 0830 hours INDICATIONS: Diagnosis advanced maternal age Technique: Multiple transabdominal sonographic images of the pelvis abdomen obtained. Attention is directed to the breathing movement, gross body movement, amniotic fluid volume and tone. Findings: Amniotic fluid index 11 cm Total biophysical profile is 8 of 8. breathing movement is 2. Gross body movement is 2. tone is 2. Qualitative amniotic fluid volume is 2 Impression: Biophysical profile is 8 of 8.
[2025-09-08 08:54] VITALS: BP 104/59; PULSE 100; RESP 16; TEMP 36.7
--- NOTE | 2025-09-12 08:10 | XR_ITS ---
Examination: Biophysical profile, ultrasound Date and time of exam: 5, time is 8:20 8:00 a.m. Technique: Multiple transabdominal sonographic images of the pelvis abdomen obtained. Attention is directed to the breathing movement, gross body movement, amniotic fluid volume and tone. Findings: The amniotic fluid index is 13.8 cm, the heart rate is 158 bpm. Total biophysical profile is 8 of 8. breathing movement is 2. Gross body movement is 2. tone is 2. Qualitative amniotic fluid volume is 2 Impression: Biophysical profile is 8 of 8.
[2025-09-12 08:42] VITALS: BP 93/50; PULSE 102; RESP 16; TEMP 36.6
--- NOTE | 2025-09-15 08:39 | XR_ITS ---
EXAMINATION: Biophysical Indications: Advanced maternal age Date and time of exam: September 15, 2025, 0843 hours Technique: Multiple transabdominal sonographic images of the pelvis abdomen obtained. Attention is directed to the breathing movement, gross body movement, amniotic fluid volume and tone. Findings: Amniotic fluid index 9.5 cm Total biophysical profile is 8 of 8. breathing movement is 2. Gross body movement is 2. tone is 2. Qualitative amniotic fluid volume is 2 Impression: Biophysical profile is 8 of 8.
[2025-09-15 08:58] VITALS: BP 85/50; PULSE 94; RESP 16; TEMP 36.7
--- NOTE | 2025-09-19 08:16 | XR_ITS ---
Examination: Biophysical profile, ultrasound Date and time of exam: September 19, 2025, 0840 hours INDICATIONS: Diagnosis advanced maternal age Technique: Multiple transabdominal sonographic images of the pelvis abdomen obtained. Attention is directed to the breathing movement, gross body movement, amniotic fluid volume and tone. Findings: Amniotic fluid index 12.2 cm Total biophysical profile is 8 of 8. breathing movement is 2. Gross body movement is 2. tone is 2. Qualitative amniotic fluid volume is 2 Impression: Biophysical profile is 8 of 8.
[2025-09-19 09:01] VITALS: BP 96/59; PULSE 104; RESP 16; TEMP 36.7
--- NOTE | 2025-09-22 08:46 | XR_ITS ---
Examination: Biophysical profile, ultrasound Date and time of exam: September 22, 2025, 0848 hours INDICATIONS: Diagnosis advanced maternal age Technique: Multiple transabdominal sonographic images of the pelvis abdomen obtained. Attention is directed to the breathing movement, gross body movement, amniotic fluid volume and tone. Findings: Amniotic fluid index 13.4 cm Total biophysical profile is 8 of 8. breathing movement is 2. Gross body movement is 2. tone is 2. Qualitative amniotic fluid volume is 2 Impression: Biophysical profile is 8 of 8.
[2025-09-22 09:30] VITALS: BP 96/52; PULSE 86; RESP 16
--- NOTE | 2025-09-26 08:17 | XR_ITS ---
Examination: Biophysical profile, ultrasound Date and time of exam: 09/26/2025 at 8:24 a.m. INDICATION: Advanced maternal age Technique: Multiple transabdominal sonographic images of the pelvis abdomen obtained. Attention is directed to the breathing movement, gross body movement, amniotic fluid volume and tone. Findings: Amniotic fluid index 14.9 cm Total biophysical profile is 8 of 8. breathing movement is 2. Gross body movement is 2. tone is 2. Qualitative amniotic fluid volume is 2 Impression: Biophysical profile is 8 of 8.
[2025-09-26 09:04] VITALS: BP 105/60; PULSE 90; RESP 17
--- NOTE | 2025-10-03 08:18 | XR_ITS ---
Study: Biophysical profile. INDICATION: Biweekly testing. TECHNIQUE: Grayscale ultrasound with color flow Doppler. COMPARISON: Biophysical profile of 26 September 2025. FINDINGS: A biophysical profile score of 2 is awarded for breathing, body movement, tone and qualitative amniotic fluid volume. The amniotic fluid index measures 14.9 cm. IMPRESSION: Biophysical profile score 8/8.
[2025-10-03 09:27] VITALS: BP 115/75; PULSE 105; RESP 16
== END 2025-10-03 23:59 | disposition home or self-care (01) ==
LOC: S4S1 08:11
PROVIDERS: Referring Provider Obstetrics & Gynecology; Visit Provider Obstetrics & Gynecology
DX: O09.523 Supervision of elderly multigravida, third trimester (principal); Z3A.39 39 weeks gestation of pregnancy
CPT/HCPCS: 59025; 76819; 80053; 81001; 82570; 84156; 85025; 86850; 86900; 86901

== ENCOUNTER 2025-10-03 09:55 | Inpatient (IN) | payer MEDICAID, SELFPAY ==
[2025-10-03] VITALS (8 sets, daily range): BP systolic 89–109; BP diastolic 50–67; PULSE 66–78; RESP 16–18; TEMP 36.8–36.9; BMI 26.6
--- NOTE | 2025-10-03 10:46 | ESHP_ITS ---
Documentation for date of: 10/03/25 OB Labor/Induct. HPI History of Present Illness Chief complaint: Patient presents for NST at 39-5/7 weeks, regular contractions seen : 6 Term pregnancies: 4 Living children: 4 History of Abortions: Spontaneous and Elective: 1 History of Vaginal deliveries: 4 Date of last menstrual period: 01/17/25 KATIE: 10/05/25 Gestational Age (weeks): 39 Gestational Age (days): 5 Gestational age based on last menstrual period: 37 Indication for induction: other (AMA, grand multiparity) History of present illness: The patient is a 40-year-old -0-1-4 history of vaginal delivery x 4 in the past. Her child is 11 years old. Patient thought she was in menopause and presented to the clinic in June and was found to be . I performed her ultrasound at bedside and based on the femur length and abdominal circumference with head circumference the patient was 23-5/7 weeks at the time giving her a due date of 10/05/2025. She presented today for a nonstress test and was found to be had found to be having contractions every minute. Patient was admitted for an augmentation of labor secondary to AMA and grand multiparity. She otherwise has no chronic medical problems and her has been uncomplicated. History of Present Dating criteria: based on 2nd trimester US only Adequate Care: Yes Ultrasounds: normal mid trimester US Obstetrical complications: other (AMA, grand multiparity) Medical complications: none Labs Maternal Blood Type: A Pos Labs: Positive: Rubella Titre, Negative: RPR, Hepatitis B, HIV, Chlamydia, Gonorrhea and Group Beta Strep and Unknown: Herpes Type 1, Herpes Type 2 and Covid-19 Past Medical History Past Medical History Comments PMH COMMENT: Eyes any significant past medical history including asthma diabetes or hypertension. A 1 hour glucose was 135. She denies any significant surgical history. She has had 4 uncomplicated vaginal deliveries in the past. Meds Home Medications and Allergies Home Medications ?Medication ?Instructions ?Recorded ?Confirmed ?Type vitamins-iron fumarate 66 1 tab PO QDAY 09/2310/03/25 History mg iron-folic acid 1 mg tablet Allergies Allergy/AdvReac Type Severity Reaction Status Date / Time No Known Allergies Allergy Verified 10/03/25 10:02 OB Exam Routine Abdominal Exam Abdominal: Present soft Detailed Labor and Delivery Exam Dilation (cm): 1 Effacement (%): 60 Cervix position: posterior station: -3 Consistency: medium Presentation: Vertex Membranes: intact monitor accelerations: 15x15 monitor decelerations: None director long term care variability: Moderate (11-25) Contraction frequency (min): Irritability Tachysystole: No Contraction intensity: Mild OB Assessment & Plan Assessment and Plan (1) AMA (advanced maternal age) multigravida 35+: Status: Acute (2) Supervision of high risk in third trimester: Status: Acute Assessment and plan: For induction of labor for AMA. Additional Plan Induction method: per misoprostol protocol Plan: induction (1) AMA (advanced maternal age) multigravida 35+ Qualifiers: Trimester: third trimester Qualified Code(s): O09.523 - Supervision of elderly multigravida, third trimester
[2025-10-03 10:59] LABS: Basophils # (Auto) 0.0 Thou/mm3 (0.0-0.2); Basophils % (Auto) 0 % (0-2.5); Eosinophils # (Auto) 0.1 Thou/mm3 (0.0-0.5); Eosinophils % (Auto) 1 % (0-10); Hematocrit 37.7 % (36.0-46.0); Hemoglobin 12.9 g/dL (12.0-16.0); Immature Granulocytes Auto 0.04 Thou/mm3 (0.00-0.00); Lymphocytes # (Auto) 1.7 Thou/mm3 (1.0-4.8); Lymphocytes % (Auto) 23 % (10-50); Mean Corpuscular HGB Conc 34.2 g/dl (31.0-37.0); Mean Corpuscular Hemoglobin 32.1 pg (25.0-35.0); Mean Corpuscular Volume 94 fL (80-100); Monocytes # (Auto) 0.6 Thou/mm3 (0.0-0.8); Monocytes % (Auto) 8 % (0-12); Neutrophils # (Auto) 5.1 Thou/mm3 (1.8-7.7); Neutrophils % (Auto) 67 % (37-80); Nucleated Red Blood Cell # 0.00 Thou/mm3 (0.00-0.00); Nucleated Red Blood Cell % 0 /100 WBC (0); Platelet Count 194 Thou/mm3 (140-440); RDW Standard Deviation 45.4 fL (36.4-46.3); Red Blood Count 4.02 Miln/mm3 (4.00-5.20); White Blood Count 7.5 Thou/mm3 (3.6-11.0)
[2025-10-03 11:33] LABS: Syphilis Nonreactive (Nonreactive)
[2025-10-03] MEDS: RINGERS LACTATED 1000 ML 1,000 ML 100 ML IV ×2 (15:04→18:16)
[2025-10-03 16:35] LABS: Amphetamine/Metham Scrn,Ur OB Negative (Negative); Benzoylecgonine Screen, Ur OB Negative (Negative); Opiate Screen,Urine OB Negative (Negative); THC Screen,Urine OB Negative (Negative)
[2025-10-04] VITALS (116 sets, daily range): BP systolic 75–136; BP diastolic 42–76; PULSE 60–156; RESP 18; TEMP 36.5–37.1; O2SAT 88–100
[2025-10-04] MEDS: RINGERS LACTATED 1000 ML 1,000 ML 100 ML IV ×2 (06:27→08:38)
[2025-10-04] MEDS: MINERAL OIL 30 ML UDC TOP (11:55)
[2025-10-04] MEDS: OXYTOCIN in NS 20 units 20 UNIT/1,000 ML BAG 125 UNIT IV ×2 (12:10→16:51)
[2025-10-04] MEDS: TRANEXAMIC ACID 1,000 MG IVPB 1,000 MG/100 ML BAG 200 MG IV ×2 (12:11→15:38)
[2025-10-04] MEDS: METHYLERGONOVINE INJ 0.2 MG/ML VIAL IM (12:16)
--- NOTE | 2025-10-04 12:31 | PD.LDDELS ---
Data (Murphy) Data : 6 Term: 4 Livin Abortions: Spontaneous & Theraputic: 1 Delivery Data (Murphy) Labor Data Initiation of labor: Induction Induction/Augmentation Agent: Cytotec-PO ROM date: 10/04/25 ROM time: 11:50 Amniotic membrane rupture type: Artificial Amniotic fluid description: Clear Delivery Data Onset of labor date: 10/04/25 Onset of labor time: 08:00 Complete dilation date: 10/04/25 Complete dilation time: 11:25 [place] delivery date: 10/04/25 delivery time: 12:10 Placenta delivery date: 10/04/25 Placenta delivery time: 12:12 Stage 1 total time: Labor - Stage 1 Duration 3 hours and 25 minutes Delivered by: Landon Dubon Delivery nurse: May Gresham RN [place] nurse: Moe Lawrence RESIZER OPERATOR Support person(s) at delivery: fob Delivery Method Delivery method: Normal Vaginal Delivery Presentation: Vertex Anesthesia Type Anesthesia Type: Epidural Placenta Placenta delivery description: Spontaneous Cord blood sent to lab: Yes cord blood collection: Cord Blood Type Episiotomy Episiotomy description: None EBL Estimated blood loss (ml): 500 Umbilical Cord cord description: 3 Vessels Additional Procedures At the time of my examination patient was noted to be fully dilated. The amniotic membranes were ruptured to reveal copious amounts of clear amniotic fluid. Patient started pushing spontaneously with every contraction and she made good descent. The head started in the left occipital transverse position. The head was delivered in this position with maternal pushing. A tight nuchal cord was felt and reduced without difficulty. The anterior shoulder first delivered followed by the posterior shoulder and then the rest of the body. The umbilical cord was doubly clamped and divided. Cord blood was obtained. Patient continued to have brisk bleeding. The placenta was delivered by gentle traction on the umbilical cord and a bimanual massage was performed with removal of blood clots. She received intrarectal misoprostol, intramuscular Methergine as well as IV oxytocin and IV tranexamic acid. No perineal or cervical lacerations were noted. At this time a Bakri balloon was placed and inflated with 400 cc of normal saline. A Weeks catheter was placed to continuous drainage. Data (Murphy) Data order: 1 [place]'s gender: Female 1 minute: 9 5 minutes: 9
[2025-10-04] MEDS: ceFAZolin/D5W 2 GM IV 2 GM/100 ML BAG IV ×2 (12:50→21:08)
[2025-10-04 15:51] LABS: Basophils # (Auto) 0.0 Thou/mm3 (0.0-0.2); Basophils % (Auto) 0 % (0-2.5); Eosinophils # (Auto) 0.0 Thou/mm3 (0.0-0.5); Eosinophils % (Auto) 0 % (0-10); Hematocrit 37.7 % (36.0-46.0); Hemoglobin 13.0 g/dL (12.0-16.0); Immature Granulocytes Auto 0.05 Thou/mm3 (0.00-0.00); Lymphocytes # (Auto) 1.3 Thou/mm3 (1.0-4.8); Lymphocytes % (Auto) 10 % (10-50); Mean Corpuscular HGB Conc 34.5 g/dl (31.0-37.0); Mean Corpuscular Hemoglobin 32.1 pg (25.0-35.0); Mean Corpuscular Volume 93 fL (80-100); Monocytes # (Auto) 0.7 Thou/mm3 (0.0-0.8); Monocytes % (Auto) 5 % (0-12); Neutrophils # (Auto) 11.1 Thou/mm3 (1.8-7.7); Neutrophils % (Auto) 84 % (37-80); Nucleated Red Blood Cell # 0.00 Thou/mm3 (0.00-0.00); Nucleated Red Blood Cell % 0 /100 WBC (0); Platelet Count 157 Thou/mm3 (140-440); RDW Standard Deviation 45.1 fL (36.4-46.3); Red Blood Count 4.05 Miln/mm3 (4.00-5.20); White Blood Count 13.2 Thou/mm3 (3.6-11.0)
[2025-10-04] MEDS: IBUPROFEN TAB 400 MG TABLET 800 MG PO (19:18)
[2025-10-05] MEDS: OXYTOCIN in NS 20 units 20 UNIT/1,000 ML BAG 125 UNIT IV (02:03)
[2025-10-05 04:15] VITALS: BP 90/51; PULSE 86; RESP 20; TEMP 36.9; O2SAT 98
--- NOTE | 2025-10-05 04:32 | PC.NURSE ---
notified regarding patient's' BP of 90/51. No new orders given.
[2025-10-05] MEDS: ceFAZolin/D5W 2 GM IV 2 GM/100 ML BAG IV (05:04)
[2025-10-05 06:13] LABS: Basophils # (Auto) 0.0 Thou/mm3 (0.0-0.2); Basophils % (Auto) 0 % (0-2.5); Eosinophils # (Auto) 0.1 Thou/mm3 (0.0-0.5); Eosinophils % (Auto) 1 % (0-10); Hematocrit 33.9 % (36.0-46.0); Hemoglobin 11.6 g/dL (12.0-16.0); Immature Granulocytes Auto 0.07 Thou/mm3 (0.00-0.00); Lymphocytes # (Auto) 1.6 Thou/mm3 (1.0-4.8); Lymphocytes % (Auto) 15 % (10-50); Mean Corpuscular HGB Conc 34.2 g/dl (31.0-37.0); Mean Corpuscular Hemoglobin 32.1 pg (25.0-35.0); Mean Corpuscular Volume 94 fL (80-100); Monocytes # (Auto) 0.7 Thou/mm3 (0.0-0.8); Monocytes % (Auto) 7 % (0-12); Neutrophils # (Auto) 7.8 Thou/mm3 (1.8-7.7); Neutrophils % (Auto) 75 % (37-80); Nucleated Red Blood Cell # 0.00 Thou/mm3 (0.00-0.00); Nucleated Red Blood Cell % 0 /100 WBC (0); Platelet Count 149 Thou/mm3 (140-440); RDW Standard Deviation 45.6 fL (36.4-46.3); Red Blood Count 3.61 Miln/mm3 (4.00-5.20); White Blood Count 10.3 Thou/mm3 (3.6-11.0)
[2025-10-05 07:45] VITALS: BP 93/54; PULSE 62; RESP 15; TEMP 36.8; O2SAT 97
[2025-10-05] MEDS: DOCUSATE SOD 100 MG CAPSULE PO (07:48)
--- NOTE | 2025-10-05 09:14 | PC.CC ---
Patient is a 40 year-old, female, presents to the hospital to deliver her baby girl. DIRECTOR CLINICAL RESEARCH received a referral for concerns of late to care at 24 weeks. DIRECTOR CLINICAL RESEARCH, Marina made [id number] contact to complete an assessment due to of late to care. DIRECTOR CLINICAL RESEARCH introduced herself, role in the agency, reason for visit, and discussed limits of confidentiality. Patient appeared alert and oriented to self, time, place, and situation. Patient made good eye contact. Patient was cooperative. Patient?s behavior appeared ordinary. No signs of delusions or hallucinations. Patient confirmed information on demographics and reports to living at home with her 2 other children ages 12, 11, and her /FOB Mohinder Lopez . Patient reports she was late to care, as she could not find a provider after she found out she was at 12 weeks. When she found a provider, the clinic could not provide her an appointment until she was 24 weeks. Upon establishing care, she was consistent. DIRECTOR CLINICAL RESEARCH provided psychoeducation regarding baby blues and Post- Depression, as well as counseling groups at [facility], and [facility]. SW provided community resources: Warm Line and Crisis Line. Patient denied history with CWS. Patient denied history of domestic violence. Patient reports she has all the supplies she needs for her new-born and is receiving WIC. Patient reports her support system includes husbands family. DIRECTOR CLINICAL RESEARCH provided update to bedside HUBER Mcallister.
--- NOTE | 2025-10-05 09:37 | PC.NURSE ---
0928: Dr. Ramirez at bedside to assess pt., POC discussed with pt. and pt's significant other, POC includes: Bakri Balloon and Monroy D/C, pt. had no questions at this time and agreed to POC. 0930:At this time Bakri balloon was removed by Dr. Ramirez with 400 cc of normal saline deflated, Monroy Catheter 16Fr d/c with 200cc of light yellow urine noted in the monroy bag, pt. tolerated both procedure. Pt. was instructed to call nurse for assistance to get up oob, call light within reach, Pt. had no questions and agreed to POC.
--- NOTE | 2025-10-05 10:00 | ESPR_ITS ---
Subjective Subjective Interval history: Patient doing well overall. Minimal discomfort. Bakri in place with scant blood within the bag. Monroy catheter in place draining bladder, clear urine. Tolerating regular diet without nausea/vomiting. No fevers/chills, no CP/SOB. Exam Vital Signs Temp Pulse Resp BP Pulse Ox O2 Del Method 98.5 F 86 20 90/51 L 98 Room Air 10/05/25 04:15 10/05/25 04:15 10/05/25 04:15 10/05/25 04:15 10/05/25 04:15 10/05/25 04:15 Narrative Exam General: well developed, well nourished, no acute distress, conversant Cardiac: normal heart rate Lungs: breathing without distress Abdomen: soft, post-gravid, non-tender, no rebound or guarding, Fundus firm at u-3cm after Bakri removed. Extremities: no pain with palpation of calves, trace edema of BLE Bakri removed after deflating by removing 600cc NS from the balloon- no issues. Fundus firm and hemostasis noted on fundal massage. Urinary monroy deflated and removed as well. Well tolerated. Objective Labs 10/05/25 05:35 Labs: Laboratory Results - last 24 hr 10/03/25 10/04/25 10/05/25 10:00 15:19 05:35 WBC 13.2 H D 10.3 RBC 4.05 3.61 L Hgb 13.0 11.6 L Hct 37.7 33.9 L MCV 93 94 MCH 32.1 32.1 MCHC 34.5 34.2 RDW Std Deviation 45.1 45.6 Plt Count 157 D 149 Neut % (Auto) 84 H 75 Lymph % (Auto) 10 15 [place] % (Auto) 5 7 Eos % (Auto) 0 1 Baso % (Auto) 0 0 Neut # (Auto) 11.1 H 7.8 H Lymph # (Auto) 1.3 1.6 [place] # (Auto) 0.7 0.7 Eos # (Auto) 0.0 0.1 Baso # (Auto) 0.0 0.0 Immature Gran # (Auto) 0.05 H 0.07 H Absolute Nucleated RBC 0.00 0.00 Immature Gran % 0 1 H Nucleated RBC % 0 0 Blood Type A Positive Antibody Screen NEGATIVE Crossmatch See Detail Blood Bank Wristband ID Yes Assessment & Plan Problem List (1) care and examination immediately after delivery: Status: Acute Assessment and plan: Helen is a 40yo G6 [id number] s/p complicated by PPH 500ml ebl treated with uterotonics, TXA and Bakri balloon, doing well on PPD 1. Vitals wnl, benign exam. Hemodynamically stable with no evidence of infection. Appropriate change in H/H from 13 to 11.6. Bakri and urinary monroy removed without issue. Minimal blood in Bakri bag at time of removal. Had been receiving Ancef with Bakri in place. Plan: -Continue routine care -Close eye to vaginal bleeding today. If remains minimal, will likely discharge later today -Discontinue ancef -Regular diet -Encourage ambulation (2) AMA (advanced maternal age) multigravida 35+: Status: Acute (3) hemorrhage: Status: Acute (4) Supervision of high risk in third trimester: Status: Acute Time Spent With Patient Time: Total time spent is greater than 50% in coordination of care (as documented) at patient's floor/unit and/or counseling patient:
[2025-10-05 12:20] VITALS: BP 91/49; PULSE 80; RESP 15; TEMP 36.9; O2SAT 95
--- NOTE | 2025-10-05 16:15 | ESDS_ITS ---
DS: Providers Provider Date of admission: 10/03/25 09:55 Primary care physician: Physician No Primary/Family Admitting Provider: Heather Gill MD ([facility]) Attending Provider on Admission: Landon Dubon MD Consults: 10/04/25 12:47 Referral Routine Comment: Attending Provider on DC: Regina Ramirez MD Discharging Provider: Regina Ramirez MD DS: Diagnosis Discharge Diagnosis (1) care and examination immediately after delivery: Status: Acute (2) hemorrhage: Status: Acute (3) Supervision of high risk in third trimester: Status: Acute Problem List Completed Was Problem List Reviewed/Reconciled?: Yes Summary/Hosp Course Brief History: The patient is a 40-year-old -0-1-4 history of vaginal delivery x 4 in the past. Her child is 11 years old. Patient thought she was in menopause and presented to the clinic in June and was found to be . I performed her ultrasound at bedside and based on the femur length and abdominal circumference with head circumference the patient was 23-5/7 weeks at the time giving her a due date of 10/05/2025. She presented today for a nonstress test and was found to be had found to be having contractions every minute. Patient was admitted for an augmentation of labor secondary to AMA and grand multiparity. She otherwise has no chronic medical problems and her has been uncomplicated. --- Helen is a 40yo G6 [id number] s/p complicated by PPH 500ml ebl treated with uterotonics, TXA and Bakri balloon, doing well on PPD 1. Vitals wnl, benign exam. Hemodynamically stable with no evidence of infection. Appropriate change in H/H from 13 to 11.6. Bakri removed in the morning and by late afternoon lochia remained normal in amount. Helen is meeting all milestones and feels ready for discharge home. She is ambulating without lightheadedness, tolerating regular diet no n/v, spontaneously voiding without issue. She has no chest pain or shortness of breath. No fevers or chills. Minimal, appropriate discomfort. Peripartum Data Delivery Method: Normal Vaginal Delivery Episiotomy Description: None Status at Discharge Functional status at discharge: independent ambulation Overall status at discharge: patient is back to baseline Time Spent with Patient Time attestation: Total time spent providing and/or coordinating discharge services: Exam Vital Signs Temp Pulse Resp BP Pulse Ox O2 Del Method 98.4 F 80 15 91/49 L 95 Room Air 10/05/25 12:20 10/05/25 12:20 10/05/25 12:20 10/05/25 12:20 10/05/25 12:20 10/05/25 12:20 Narrative Exam General: well developed, well nourished, no acute distress, conversant Cardiac: normal heart rate Lungs: breathing without distress Abdomen: soft, post-gravid, non-tender, no rebound or guarding, Fundus firm at u-3cm. Extremities: no pain with palpation of calves, trace edema of BLE Discharge Plan Plan Patient Disposition: HOME (Self Care) Patient condition on transfer: Stable Prescriptions/Referrals Prescriptions/Med Rec: New docusate sodium [Stool Softener] 100 mg capsule 100 mg PO QDAY 30 Days Qty: 30 0RF ibuprofen 600 mg tablet 600 mg PO Q6H MDD 4 PRN (Reason: fever or pain) 10 Days Qty: 40 0RF amoxicillin-pot clavulanate 875-125 mg tablet 1 tab PO BID 7 Days Qty: 14 0RF Continued vit-iron fum-folic ac 66 mg iron- 1 mg tablet 1 tab PO QDAY Referrals: Landon Dubon MD [Physician, DIRECTOR OF CONSTRUCTION] No Primary/Family,Physician [Primary Care Provider] Patient/Caregiver Discharge Instructions Discharge Activity: activity as tolerated Other Discharge Activity Instructions:: vaginal rest and no heavy lifting more than 10 pounds for 6 weeks Other Discharge Diet Instructions: regular diet Education Materials: After a Vaginal , Perineum Care After Childbirth, Understanding Blues, Depression, After Delivery Concerns, Breast Care After , Understanding Depression Print Language: [place] Activity Restrictions/Additional Instructions: follow up with your obgyn in 4 to 6 weeks for visit, call clinic to schedule appointment Stand Alone Forms: Neena Award Info., Patient Portal Info Letter Discharge Order Discharge Orders: Discharge (Routine); Ordered 10/05/25 Ordered By: Regina Ramirez Planned Discharge Date 10/05/25 (2) hemorrhage Qualifiers: hemorrhage type: other immediate Qualified Code(s): O72.1 - Other immediate hemorrhage
== END 2025-10-05 18:05 | disposition home or self-care (01) | DRG 560 ==
LOC: S4SX 10-04 12:38 → S4NX 10-04 15:01
PROVIDERS: Admitting Provider Obstetrics & Gynecology; Visit Provider Obstetrics & Gynecology
DX: O69.1XX0 Labor and delivery complicated by cord around neck, with compression, not applicable or unspecified (principal); Z37.0 Single live birth; Z3A.39 39 weeks gestation of pregnancy; O72.1 Other immediate postpartum hemorrhage
CPT/HCPCS: 36415; 59409; 80307; 85025; 86780; 86850; 86900; 86901; 86923; 94762; J0689; J2210; J2590; J2795; J3010; J3490; J7120; S0191; A9270